=== PATIENT | female | born 1945 ===

== ENCOUNTER 2021-08-27 06:33 | Day surgery (SDC) | payer MEDICARE ==
[2021-08-27 07:36] LABS: Basophils # (Auto) 0.1 K/mm3 (0.0-0.1); Eosinophils # (Auto) 0.1 K/mm3 (0.0-0.4); Eosinophils % (Auto) 0.9 % (0.0-4.3); Hematocrit 42.7 % (30.3-42.9); Hemoglobin 13.4 gm/dl (10.1-14.3); Lymphocytes # (Auto) 2.3 K/mm3 (1.2-5.4); Mean Corpuscular HGB Conc 32 % (30-34); Mean Corpuscular Volume 77 fl (79-97); Monocytes # (Auto) 0.4 K/mm3 (0.0-0.8); Monocytes % (Auto) 4.3 % (0.0-7.3); Platelet Count 216 K/mm3 (140-440); Red Blood Count 5.58 M/mm3 (3.65-5.03); Red Cell Distribution Width 17.1 % (13.2-15.2)
[2021-08-27 07:48] LABS: Partial Thromboplastin Time 30.9 Sec. (24.2-36.6)
[2021-08-27] MEDS ORDERED: SODIUM CHLORIDE 0.9% 500 ML 500 ML IV SCH (08:00)
[2021-08-27] MEDS ORDERED: ASPIRIN EC 325 MG TAB PO SCH (08:00)
[2021-08-27] MEDS ORDERED: HEPARIN/NS 5000 UNIT/500ML 1,000 ML IR ONE (08:07)
[2021-08-27] MEDS ORDERED: HEPARIN 10,000 UNITS/10 ML VIAL ONE (08:07)
[2021-08-27] MEDS ORDERED: VERAPAMIL 5 MG/2 ML INJ ONE (08:08)
[2021-08-27] MEDS ORDERED: LIDOCAINE (2%) 20 MG/1 ML VIAL 20 ML MDV INFILTRATI ONE ×2 (08:08→08:44)
[2021-08-27 08:10] LABS: BUN/Creatinine Ratio 20; Blood Urea Nitrogen 18 mg/dL (7-17); Calcium 9.2 mg/dL (8.4-10.2); Hemolysis Index 5
[2021-08-27] MEDS ORDERED: NITROGLYCERIN SYRINGE 3 ML ONE (08:19)
[2021-08-27] MEDS: MIDAZOLAM 2 MG/2 ML INJ ONE ×2 (08:59→09:49)
[2021-08-27] MEDS: fentaNYL 100 MCG/2 ML INJ ONE ×3 (09:00→09:49)
[2021-08-27] MEDS ORDERED: HEPARIN/NS 5000 UNIT/500ML 500 ML IR ONE (09:04)
[2021-08-27] MEDS ORDERED: HYDROcodone/ACETAMINOPHEN 5-325 MG TAB PO PRN (09:21)
[2021-08-27] MEDS ORDERED: traMADol 50 MG TAB PO PRN (09:21)
--- NOTE | 2021-08-27 09:23 | Short Stay Summary ---
Short Stay Documentation Date of service: 08/27/21 Narrative H&P: See office H&P - History H&P: obtained from office - Allergies and Medications Current Medications: Allergies No Known Allergies Allergy (Unverified 08/27/21 07:17) Active Medications Aspirin (Aspirin Ec 325 Mg Tab) 325 mg PO ONCE@0800 WAQAR Stop: 08/27/21 17:00 Sodium Chloride (Nacl 0.9% 500 Ml) 500 mls @ 50 mls/hr IV DIRECT WAQAR Stop: 08/27/21 17:59 - Brief post op/procedure progress note Date of procedure: 08/27/21 Pre-op diagnosis: Aortic stenosis Post-op diagnosis: same - Hospital course Hospital course: Uneventful - Disposition Condition at discharge: Good Short Stay Discharge Plan Follow up with: VIVIANE THAO [Other] - 7 Days
[2021-08-27] MEDS ORDERED: SODIUM CHLORIDE 0.9% 1000 ML 1,000 ML IV SCH (09:30)
--- NOTE | 2021-08-27 10:00 | Cardiac Catherization Report ---
DATE OF SERVICE: 08/27/2021 RIGHT AND LEFT HEART REPORT DATE OF PROCEDURE: 08/27/2021 PROCEDURES PERFORMED: 1. Selective left and right coronary angiogram. 2. Left ventriculogram. 3. Right heart catheterization. REQUESTING PHYSICIAN: Dr. Sandy Maloney. GUEST ASSOCIATE: Alejandro Puentes MD INDICATION: Aortic stenosis, evaluation for valve replacement. PROCEDURE DETAILS: 1. The patient was prepped and draped in a sterile fashion after informed consent. 2. The right groin was anesthetized using 1% Lidocaine local infiltration. 3. The right femoral artery was entered using the Seldinger technique, followed by the placement of a #6-Japanese sheath. 4. The right femoral vein was entered using the Seldinger technique and an #8-Japanese sheath was placed. 5. Right heart catheterization was done using a #7.5-Japanese [place]mont-James catheter. The catheter was advanced under fluoroscopic guidance to the right atrium, right ventricle, pulmonary, and pulmonary artery wedge positions. 6. Right heart pressures were measured and recorded. Cardiac output was then measured using the thermodilution method. 7. A #6-Japanese pigtail catheter was advanced into the left ventricle and left ventricular catheterization was performed. 8. Simultaneous left ventricular end-diastolic and pulmonary artery wedge pressures were recorded. 9. The [place]mont-James catheter was withdrawn into the right ventricle and simultaneous left ventricular and right ventricular end-diastolic pressures were measured. The Aspermont-James catheter was then withdrawn completely after complete measurement of right ventricular pressures. 10. Left ventricular angiography was performed in the right anterior oblique projection. 11. Left and right coronary angiography was performed in multiple projection. 12. The catheters were withdrawn, the sheaths removed, and hemostasis achieved. The patient was returned to the post-catheter holding area in stable condition. There were no complications, equipment malfunction, or technical difficulties. Radial sheath was removed and TR band was applied. The venous sheath was left in place to be removed in the recovery unit. SEDATION: Moderate sedation was used under direct supervision by me. Versed and fentanyl was used. SEDATION START TIME: 9:00 a.m. SEDATION END TIME: 9:20 a.m. FINDINGS: HEMODYNAMICS: RA was 13 mmHg. RV is 43/12 mmHg. PA 41/17 with a mean of 25 mmHg. Wedge was 20 mmHg. Cardiac output was 7.74 liters mmHg. Cardiac index was 3.65. The aortic valve was 120/63. LV was 148/23. LVEDP was 23. Xqht-xx-whvz gradient was only 28. Calculated valve area was 1.53 cm2. ANGIOGRAM DETAILS: 1. Left main is angiographically normal. 2. LAD is a medium to large caliber calcified vessel. There is a moderate eccentric proximal 50% nonobstructive stenosis in the LAD. 3. The circumflex also is moderately calcified, medium caliber vessel. OM1 has an eccentric 60% stenosis. 4. The RCA is heavily calcified, likely with no significant obstructive stenosis. 5. Left ventriculogram done in 30-degree SANCHEZ projection was suboptimal. Grossly normal LV function. IMPRESSION: 1. Mildly elevated right heart pressures. 2. Moderate aortic stenosis with a bhdk-gn-gych gradient of 28 mmHg and valve area is 1.53. 3. Moderate nonobstructive 2-vessel coronary artery disease involving the proximal left anterior descending and the mid obtuse marginal 1. 4. Elevated left ventricular end-diastolic pressure. PLAN: 1. Aggressive risk factor modification. 2. Follow up with primary mechanical laboratory technician. 3. Medical management for nonobstructive CAD. TID: [id number] RECEIPT: [id number] RIMMA/SHANITA/YULISSA
--- NOTE | 2021-08-27 11:15 | Electrocardiograph Report ---
[facility] Test Date: 2021-08-27 Test Time: 08:04:39 Pat Name: VIRY REY Department: Room: Gender: F Tufter Hand: MAYANK : 1945 Requested By: JOSE KOVACS Order Number: [id number] Reading MD: Maykel Means Measurements Intervals [place] Rate: 81 P: LA: QRS: 43 QRSD: 152 T: 0 QT: 439 QTc: 511 Interpretive Statements Atrial fibrillation Right bundle branch block No previous ECG available for comparison Electronically Signed On 08-27-2021 11:15:42 EST by Maykel Means
[2021-08-27 13:06] VITALS: BP 119/65
== END 2021-08-27 06:34 | disposition home or self-care (01) ==
LOC: CATHLABREC 06:33
PROVIDERS: ATTEND Internal Medicine Cardiovascular Disease
DX: I48.0 Paroxysmal atrial fibrillation (principal); R06.00 Dyspnea, unspecified; R06.09 Other forms of dyspnea; I10 Essential (primary) hypertension; E78.00 Pure hypercholesterolemia, unspecified; J44.9 Chronic obstructive pulmonary disease, unspecified; E66.9 Obesity, unspecified; M19.90 Unspecified osteoarthritis, unspecified site; Z79.4 Long term (current) use of insulin; Z79.899 Other long term (current) drug therapy; Z98.890 Other specified postprocedural states
CPT/HCPCS: 36415; 80048; 85025; 85610; 85730; 93005; 93460; 99156; C1894; J1644; J1815; J2250; J3010; J3490; J7040; Q9967